=== PATIENT | female | born 1955 | race Caucasian/White ===

== ENCOUNTER 2022-07-03 11:54 | Inpatient (IN) ==
[~2022-07-03 11:54] MED LIST: ACETAMINOPHEN 500 MG TAB PO SCH; LACTATED RINGER'S 1,000 ML IV SCH; ceFAZolin 2000MG 2,000 MG/15 ML SYR IV SCH; dexAMETHasone 4 MG TAB PO SCH; traMADol HCL 50 MG TABLET PO SCH
[2022-07-03] MEDS ORDERED: bisacodyL 10 MG SUPP PR PRN (12:05)
[2022-07-03] MEDS ORDERED: HYDROmorphone INJ 0.5 MG/0.5 ML SYR IV PRN ×2 (12:05)
[2022-07-03] MEDS ORDERED: MAGNESIUM HYDROXIDE SUSP 30 ML UDC PO PRN (12:05)
[2022-07-03] MEDS ORDERED: NALOXONE HCL 0.4 MG/1 ML VIAL/CARP IV PRN (12:05)
--- NOTE | 2022-07-03 12:05 | History & Physical Report ---
Date of Service July 03, 2022 Assessment & Plan (1) Fracture, intertrochanteric, left femur: Plan: Acute left intertrochanteric femur fracture Diagnosed at [place], patient transferred to [facility] as is established with [facility] orthopedics and preferred to have intervention in her facility Discussed with ER provider at [facility], patient with left intertrochanteric fracture and lesser troches avulsion. Images sent via disc, forwarded to radiology for independent read and reviewed Orthopedics consulted, discussed prior to transfer. Dr. Hua consulted. N.p.o. at midnight RCRI 0 points pending creatinine reevaluation, no modifiable risk factors at this time Continue Tylenol with scaled hydromorphone for analgesia Patient scheduled for first morning orthopedic intervention, may have clears until midnight Anxiety Continue Lexapro 10 mg daily Osteoporosis Fosamax weekly, recommend daily calcium/vitamin D supplementation No other chronic medical problems, no chronic medications, no cardiac history, no history of diabetes or insulin use DVT prophylaxis: Pharmacal prophylaxis held pending surgical intervention within ~12 hours Diet: Clears, n.p.o. at midnight Disposition: Medical/surgical CODE STATUS: Full code (2) Anxiety: History of Present Illness Primary Care Provider: Fei Keenan MD Rosaura Patrick is a 67-year-old female who presented to [facility] after a fall over her purse striking her left hip and 2 on evaluation in the ER was found to have an intertrochanteric left hip fracture with left shoulder trochanter avulsion. Per signout report patient has no other comorbidities, no history of diabetes or cardiac disease, is active, and takes no regular medications other than Fosamax. Per report patient in normal sinus rhythm with stable vitals and appropriate for medical surgical level of care. Discussed with clinical coordinator, patient was excepted for direct admission to medicine with surgery on consult. Discussed with surgical PA, Dr. Hua aware and will be on consult. Patient is known to [facility] orthopedics. Seen at bedside on arrival to [facility]. She reports that she tripped over her purse and fell to the floor striking her hip with immediate pain in the proximal left hip. She did not strike her head or neck. No headache or neck pain. No syncope, presyncope, lightheadedness, dizziness that led to the fall. She reports she walks regularly with her and has no exertional dyspnea or exercise limitation at baseline. No history of heart disease. No history of diabetes. No history of insulin use. No history of kidney disease. Takes Lexapro 10 mg daily for anxiety and Fosamax weekly, otherwise no chronic medications. At time of assessment she feels comfortable in bed as long she does not move, has pain in her proximal medial hip. Sensation is intact in her feet bilaterally, denies numbness/tingling. Denies fever, chills, sweats, nausea, vomiting, diarrhea, and constipation. No tobacco/heavy alcohol use. Medical History: Reviewed Medications: Reviewed Surgical History: Reviewed Allergies: Reviewed Social History: No tobacco use, no heavy alcohol use Code Status: Full code Allergies Allergy/AdvReac Type Severity Reaction Status Date / Time Iodinated Contrast Media Allergy Mild HIVES Verified 01/23/20 18:00 Home Medications Medication Instructions Recorded Confirmed Type alendronate 70 mg tablet (Fosamax) 70 mg PO WK 01/23/20 01/23/20 History Past Med/Surg History Medical History (Updated 07/03/22 @ 17:28 by Jose Rafael Hand MD) Anxiety No pertinent past medical history Social History Smoking Status: Never smoker Preferred Language: [place] Feels Safe at Home: Yes Review of Systems Review of Systems: All systems reviewed & are unremarkable except as noted in HPI & below Physical Exam Physical Exam: General: A&Ox3. NAD. Cooperative. HEENT: Atraumatic, normocephalic. Vision and hearing grossly intact. Pupils equal and reactive to light Pulm: CTAB A&P. -wheezes, -rales, -rhonchi. Symmetrical chest rise. No increase in work of breathing. No respiratory distress. Cardiac: RRR, -mrg. Radial pulses intact and symmetrical. Abdominal: Nontender, nondistended, soft. BS present. Extremities: Resting comfortably in bed, left lower extremity slightly shortened. Tender to palpation at proximal medial thigh. PT pulse/DP pulses intact and symmetrical. Sensation of soft touch intact in feet bilaterally without asymmetry. Cap refill brisk in the hallux bilaterally. Able to wiggle toes bilaterally PG Care Time/CCT Total # of Minutes Spent Total Time Spent with Patient: Total time spent is greater than 50% in coordination of care (as documented) at patient's floor/unit and/or counseling patient: Coding Level of Care Code 17068 Initial Inpt Care Lvl 2 Diagnoses Fracture, intertrochanteric, left femur S72.142A Anxiety F41.9
[2022-07-03] MEDS: LACTATED RINGER'S 1,000 ML IV SCH (17:11)
[2022-07-03 17:59] LABS: INR 1.2 (0.9-1.1); Partial Thromboplastin Ratio 0.9; Partial Thromboplastin Time 23.9 Seconds (21.0-31.0); Prothrombin Time 12.2 Seconds (9.0-12.0)
--- NOTE | 2022-07-03 18:36 | History & Physical Report ---
Date of Service July 03, 2022 Assessment & Plan (1) Fracture, intertrochanteric, left femur: Plan: Left femur trochanteric nailing to be preformed tomorrow AM NPO after midnight Pain control with PO or IV meds until midnight IV Zofran for nausea Informed consent to precede with surgery obtained NWB on Left LE Admission and Anticipated Discharge Date Admission Date: July 03, 2022 History of Present Illness Chief Complaint: Left Hip Pain Primary Care Provider: Fei Keenan MD This 67 yo F was transferred from [facility] to our facility for a hip fracture that she sustained this AM after tripping over her purse and landing on her left side. Patient was unable bear weight on the left LE after the fall. She elected to come here for surgery because she is established with our providers. She denies CP, SOB, nausea, vomiting, fever, chills, sweats, lethargy or N/T in her left lower extremity. She does have history of osteoporosis and anxiety. Allergies Allergy/AdvReac Type Severity Reaction Status Date / Time Iodinated Contrast Media Allergy Mild HIVES Verified 01/23/20 18:00 Home Medications Medication Instructions Recorded Confirmed Type alendronate 70 mg tablet (Fosamax) 70 mg PO WK 01/23/20 01/23/20 History Past Med/Surg History Medical History Anxiety No pertinent past medical history Social History Smoking Status: Never smoker Do You Dip or Chew Tobacco: No; Hx Alcohol Use: Yes Alcohol type: wine Hx Substance Use: No Preferred Language: Romansh Communication Ability: Effective [facility] Coordinator Required: No Beliefs That Will Affect Care: None Current Living Situation: Spouse Other Information That Helps Us Care for You: No Feels Safe at Home: Yes Safety Concerns: Feels Safe At This Time Assistive Devices: Glasses Review of Systems All systems reviewed & are unremarkable except as noted in Subjective Physical Exam Physical Exam: Left LE: shortened and externally rotated. Unable to perform SLRT. Pain with log roll. Able to actively dorsi/plantar flex foot. Periph pulses 2+. Cap refill less that 2 seconds. TTP over proximal femur. NV intact. Constitutional: WD/WN, vitals as above Eyes: PERRL, conjunctivae normal, anicteric sclerae ENMT: external ear and nose normal, oropharynx normal Respiratory: Auscultation: lungs clear to auscultation bilaterally Cardiovascular: Rate/Rhythm: regular rate and regular rhythm Gastrointestinal (Abdomen): normal bowel sounds, soft, nontender, no hepatosplenomegaly Skin: no rashes, warm and dry Neurologic: patellar DTR's 2+ bilat, sensation intact Psychiatric: A+Ox3, euthymic affect Results & Data ([facility]) Vital Signs (Past 12 Hours) Vital Signs Temp Pulse Resp BP Pulse Ox Pulse Ox O2 Del Method 07/03/22 16:45 100 07/03/22 16:45 36.9 C 70 18 123/72 100 Room Air O2 Del Method 07/03/22 16:45 Room Air 07/03/22 16:45 Diagnostic Findings Laboratory Results PT 12.2 Seconds (9.0-12.0) H 07/03/22 17:34 INR 1.2 (0.9-1.1) H 07/03/22 17:34 APTT 23.9 Seconds (21.0-31.0) 07/03/22 17:34 PTT Ratio 0.9 07/03/22 17:34 Supervising Physician Co-Signing Physician Notes I personally examined the patient with WILLY Trivedi, reviewed the plan for surgery, and answered all questions about treatment.
[2022-07-03 19:00] LABS: Hematocrit (blood only) 39.1 % (34.1-44.9); Hemoglobin 13.4 g/dl (12.0-16.0); Mean Corpuscular Hemoglobin 32.1 pg (25.0-34.0); Mean Corpuscular Hgb Conc 34.3 g/dL (32.0-36.0); Mean Corpuscular Volume 93.5 fL (80.0-100.0); Mean Platelet Volume 11.6 fL (9.4-12.3); Platelet Count 207 K/uL (130-400); RDW Coefficient of Variation 12.3 % (11.5-14.5); RDW Standard Deviation 42.7 fL (36.4-46.3); Red Blood Count 4.18 M/uL (3.93-5.22); White Blood Count 9.17 K/ul (4.8-10.8)
[2022-07-03 19:10] LABS: BUN Creatinine Ratio 22.7 (10-20); Calcium 8.8 mg/dl (8.5-10.1); Creatinine Clr Calc Pharmacy 65.5 ml/min; Est GFR (African American) 95.6 ml/min; Est GFR (Non-African American) 82.5 ml/min; Potassium 3.6 mmol/L (3.5-5.1)
[2022-07-03] MEDS: DOCUSATE SODIUM/SENNA 50/8.6MG TAB PO SCH (20:29)
[2022-07-03] MEDS ORDERED: ESCITALOPRAM OXALATE 10 MG TAB PO ONE (21:47)
[2022-07-04] MEDS: LACTATED RINGER'S 1,000 ML IV SCH (01:36)
[2022-07-04] MEDS ORDERED: TRANEXAMIC ACID / 0.7% NACL 1,000 MG/100 ML BAG IV SCH ×2 (06:00→06:30)
[2022-07-04 06:15] LABS: Basophils # (auto) 0.02 K/uL (0-0.2); Basophils % (auto) 0.4 %; Eosinophils # (auto) 0.03 K/uL (0-0.50); Eosinophils % (auto) 0.6 %; Hematocrit (blood only) 34.6 % (34.1-44.9); Hemoglobin 11.5 g/dl (12.0-16.0); Immature Granulocytes # (auto) 0.02 K/uL (0.00-0.02); Immature Granulocytes % (auto) 0.4 %; Lymphocytes # (auto) 0.83 K/uL (1.2-3.4); Lymphocytes % (auto) 15.7 %; Mean Corpuscular Hemoglobin 31.6 pg (25.0-34.0); Mean Corpuscular Hgb Conc 33.2 g/dL (32.0-36.0); Mean Corpuscular Volume 95.1 fL (80.0-100.0); Monocytes # (auto) 0.45 K/uL (0.24-0.82); Monocytes % (auto) 8.5 %; Neutrophils # (auto) 3.92 K/uL (1.4-6.5); Neutrophils % (auto) 74.4 %; Platelet Count 171 K/uL (130-400); RDW Coefficient of Variation 12.6 % (11.5-14.5); RDW Standard Deviation 43.3 fL (36.4-46.3); Red Blood Count 3.64 M/uL (3.93-5.22); White Blood Count 5.27 K/ul (4.8-10.8)
[2022-07-04 06:39] LABS: Albumin Globulin Ratio 1.5 (0.9-2); Albumin Level 3.3 gm/dl (3.4-5.0); BUN Creatinine Ratio 28.8 (10-20); Bilirubin,Total 2.4 mg/dl (0.2-1.0); Calcium 7.9 mg/dl (8.5-10.1); Creatinine Clr Calc Pharmacy 83.3 ml/min; Est GFR (African American) 109.9 ml/min; Est GFR (Non-African American) 94.8 ml/min; Globulin 2.2 gm/dl (2.5-4.0); Potassium 3.5 mmol/L (3.5-5.1); Total Protein 5.5 gm/dl (6.0-8.3)
[2022-07-04] MEDS ORDERED: fentaNYL citrate 100 MCG/2 ML VIAL ONE ×2 (07:07→07:12)
[2022-07-04] MEDS ORDERED: MIDAZOLAM HCL 1 MG/ML 2ML VIAL ONE (07:07)
[2022-07-04] MEDS ORDERED: ACETAMINOPHEN 1000 MG/100 ML IV IV ONE (07:21)
[2022-07-04] MEDS ORDERED: SCOPOLAMINE 1 MG TDSY TD ONE (07:22)
[2022-07-04] MEDS ORDERED: FAMOTIDINE/PF 20 MG/2 ML VIAL IV ONE (07:22)
[2022-07-04] MEDS ORDERED: HYDROmorphone INJ 2 MG/ML SYR/VIAL IV PRN (07:29)
[2022-07-04] MEDS ORDERED: ATROPINE SULFATE 0.1 MG/ML 10ML SYR IV PRN (07:29)
[2022-07-04] MEDS ORDERED: fentaNYL citrate 100 MCG/2 ML VIAL IV PRN (07:29)
[2022-07-04] MEDS ORDERED: ePHEDrine sulfate 50 MG/ML AMP IV PRN (07:29)
--- NOTE | 2022-07-04 07:29 | Anesthesiology Consultation ---
Date of Service July 04, 2022 Assessment & Plan Chart Review Chart Review: Acceptable Risk for Surgery and Patient NOT seen in Pre Admission Testing ASA ASA2E Proposed Anesthesia Anesthesia Type: General Risk / Benefits Reviewed With: PT / POA / Parent / Guardian, Accepts Plan and Informed Consent Obtained History Surgery Operation Date: 07/04/22 07:30 Proposed Procedures p Intramedullary Candido Femur(Left) - Jose Hua MD Height/Weight Height: 5 ft 5 in Weight: 63 kg Allergies Allergy/AdvReac Type Severity Reaction Status Date / Time Iodinated Contrast Media Allergy Mild HIVES Verified 01/23/20 18:00 Medications Home Medications Medication Instructions Recorded Confirmed Last Taken alendronate 70 mg tablet (Fosamax) 70 mg PO WK 01/23/20 01/23/20 Unknown Active Medications Generic Name Dose Route Start Last Admin Trade Name Freq PRN Reason Stop Dose Admin Hydromorphone HCl 0.25 mg 07/03/22 12:05 07/04/22 01:36 Hydromorphone Inj 0.5 Mg/0.5 Ml Syr IV 07/17/22 12:04 0.25 mg Q3H PRN Administration Pain (1,2,3,4,5) & Pre PT Hydromorphone HCl 0.5 mg 07/03/22 12:05 07/04/22 05:55 Hydromorphone Inj 0.5 Mg/0.5 Ml Syr IV 07/17/22 12:04 0.5 mg Q3H PRN Administration Pain (6,7,8,9,10) Lactated Ringer's 1,000 mls @ 100 mls/hr 07/03/22 12:15 07/04/22 01:36 Lr IV 08/02/22 12:14 100 mls/hr .Q10H DUNIA Administration Senna/Docusate Sodium 2 tab 07/03/22 21:00 07/03/22 20:29 Docusate Sodium/Senna 50/8.6mg Tab PO 08/02/22 20:59 2 tab HS DUNIA Administration NPO Date Last Intake of Fluids: 07/03/22 Time Last Intake of Fluids: 17:00 Past Medical History Medical History Anxiety No pertinent past medical history Exercise / Class Metabolic Activity II 4-5 Yardwork/Stairs/Walk up hill Past Anesthesia History No Hx of Anesthesia Complications and No Family Hx of Anesthesia Complications History of PONV No Hx of PONV and Hx of Motion Sickness Social History Smoking Status: Never smoker Do You Dip or Chew Tobacco: No Hx Alcohol Use: Yes Alcohol type: wine alcohol intake frequency: holidays/special occasions only Hx Substance Use: No Review of Systems Constitutional: as per Subjective / HPI Ear, Nose, Mouth, Throat: as per Subjective / HPI Cardiovascular: as per Subjective / HPI Gastrointestinal: as per Subjective / HPI Genitourinary (Female): as per Subjective / HPI Musculoskeletal: as per Subjective / HPI Integumentary: as per Subjective / HPI Neurologic: as per Subjective / HPI Psychiatric: as per Subjective / HPI Endocrine: as per Subjective / HPI Hematologic / Lymphatic: as per Subjective / HPI Allergy / Immunological: as per Subjective / HPI Physical Exam Vital Signs Last Vital Signs Temp 36.7 C 07/03/22 22:07 Pulse 59 L 07/03/22 22:07 Resp 14 07/03/22 22:07 BP 106/63 07/03/22 22:07 Pulse Ox 99 07/03/22 22:07 O2 Del Method 07/03/22 22:07 ENMT Mouth: no TMJ abnormality Thyromental Distance: > or= 3.5 Finger Breadths Mallampati Class: II Neck normal visual inspection Respiratory normal respiratory effort Cardiovascular Rate/Rhythm: regular rhythm and + bradycardic Musculoskeletal Spine: normal cervical ROM Extremities: extremities normal to inspection Neurologic moves all extremities Psychiatric Orientation: alert and oriented x 3 Testing Laboratory Results 07/04/22 05:46 07/04/22 05:46 PT 12.2 Seconds (9.0-12.0) H 07/03/22 17:34 INR 1.2 (0.9-1.1) H 07/03/22 17:34 APTT 23.9 Seconds (21.0-31.0) 07/03/22 17:34 Blood Type A Positive 07/03/22 17:34 Antibody Screen NEGATIVE 07/03/22 17:34
--- NOTE | 2022-07-04 07:29 | History & Physical Bridge Note ---
Date of Service July 04, 2022 History & Physical Bridge Note I have examined the patient, reviewed the History & Physical and in the interval since the performance of the History & Physical I have noted the following changes of clinical significance: no changes noted
[2022-07-04] MEDS ORDERED: TRANEXAMIC ACID / 0.7% NACL 1000MG/100ML BAG IV ONE (07:42)
[2022-07-04] MEDS ORDERED: LIDOCAINE 2% MPF LOCAL 5 ML VIAL INFIL ONE (07:53)
[2022-07-04] MEDS ORDERED: HYDROmorphone INJ 2 MG/ML SYR/VIAL ONE (07:54)
[2022-07-04] MEDS ORDERED: DEXAMETHASONE SOD INJ 4 MG/ML VIAL ONE (07:54)
[2022-07-04] MEDS ORDERED: PROPOFOL IV EMULSION 10 MG/ML 20 ML VIAL IV ONE (07:54)
[2022-07-04] MEDS ORDERED: ONDANSETRON INJ 2 MG/ML 2 ML VIAL ONE (07:54)
[2022-07-04] MEDS ORDERED: METOCLOPRAMIDE HCL INJ 5 MG/ML 2 ML VIAL ONE (07:54)
[2022-07-04] MEDS ORDERED: ROCURONIUM BROMIDE 10 MG/ML 5 ML VIAL IV ONE (07:54)
[2022-07-04] MEDS ORDERED: ePHEDrine sulfate 50 MG/ML SYR ONE (08:13)
[2022-07-04] MEDS ORDERED: ePHEDrine sulfate 50 MG/ML AMP ONE (08:13)
[2022-07-04] MEDS ORDERED: NEOSTIGMINE METHYLSULFATE 1 MG/ML 10ML VIAL ONE (08:18)
[2022-07-04] MEDS ORDERED: GLYCOPYRROLATE 0.2 MG/ML VIAL ONE (08:18)
[2022-07-04] MEDS ORDERED: PHENYLEPHRINE 100MCG/ML 5ML SYR ONE (08:19)
[2022-07-04] MEDS ORDERED: TRANEXAMIC ACID 100 MG/ML 10 ML VIAL IV ONE (08:27)
[2022-07-04] MEDS ORDERED: KETOROLAC 30 MG/ML VIAL ONE (09:08)
--- NOTE | 2022-07-04 09:15 | Operative Report ---
Post Operative Report Pre & Post Diagnosis Operation Date: 07/04/22 07:30 Pre-Op Diagnosis: LEFT INTERTROCHANTERIC FRACTURE Post-Op Diagnosis: LEFT INTERTROCHANTERIC FRACTURE I identified the patient and participated in the time-out.: Yes Procedure Operation Date: 07/04/22 07:30 Actual Procedures p Left Hip Trochanteric Nailing(Left) - Jose Hua MD Surgeon page Hua Parquet Floor Layer'S Helper MISSAEL Chew. Estimated Blood Loss 10 Findings Consistent with Post-Op Diagnosis Specimens None Anesthesia Type General Complications none Disposition Accompanied Patient To Recovery: No Disposition: Recovery Room Indications Rosaura is 67 years old and has a left intertrochanteric hip fracture. Description of Procedure I was present throughout the length of the operation provide necessary assistance with positioning retraction surgical exposure and general surgical assistance. For details of the operation please refer to Dr. Hua's dictation. I attest to the content of the Intraoperative Record and any orders documented therein. Any exceptions are noted below.
--- NOTE | 2022-07-04 09:41 | Post Operative Brief Note ---
Immediate Post Op Note v1 Date of Surgery July 04, 2022 Pre & Post Diagnosis Operation Date: 07/04/22 07:30 Pre-Op Diagnosis: LEFT INTERTROCHANTERIC FRACTURE Post-Op Diagnosis: LEFT INTERTROCHANTERIC FRACTURE I identified the patient and participated in the time-out.: Yes Procedure Operation Date: 07/04/22 07:30 Actual Procedures p Left Hip Trochanteric Nailing(Left) - Jose Hua MD Surgeon Jose Hua MD Ticket Sales Agent MISSAEL Chew. Estimated Blood Loss 10 Findings Consistent with Post-Op Diagnosis Fluids 1200cc Drains Wei Catheter (intact prior to procedure) Anesthesia Type General Complications none Disposition Accompanied Patient To Recovery: Yes Disposition: Recovery Room
--- NOTE | 2022-07-04 09:42 | Operative Report ---
Post Operative Report Pre & Post Diagnosis Operation Date: 07/04/22 07:30 Pre-Op Diagnosis: LEFT INTERTROCHANTERIC FRACTURE Post-Op Diagnosis: LEFT INTERTROCHANTERIC FRACTURE I identified the patient and participated in the time-out.: Yes Procedure Operation Date: 07/04/22 07:30 Actual Procedures p Left Hip Trochanteric Nailing(Left) - Jose Hua MD Surgeon Jose Hua MD Size Roller Operator MISSAEL Chew. Estimated Blood Loss 10 Findings Consistent with Post-Op Diagnosis Specimens na Anesthesia Type General Complications na Disposition Accompanied Patient To Recovery: Yes Disposition: Recovery Room Description of Procedure PRIMARY SURGEON: Jose Hua MD OPEN WINDER SURGEON: Jose Rafael Mayorga MD; MISSAEL Trivedi PA-C INDICATION FOR SURGERY: Patient is a 67 year female, transferred from [facility] at the request of her daughter. She injured her left hip after tripping over her purse. She had immediate pain and was taken to the ER. She was diagnosed with an left intertrochanteric hip fracture. She opted to be transferred to [facility] for evaluation and treatment. PREOPERATIVE DIAGNOSES: left intertrochanteric hip fracture POSTOPERATIVE DIAGNOSES: left intertrochanteric hip fracture OPERATION PERFORMED: left hip intramedullary nail with cephalomedullary device LABORATORY SPECIMEN(s): None. FINDINGS: minimally displaced left hip fracture, intertrochanteric variant IMPLANTS: Synthes TFN, 12mm x 170mm with 95mm blade and 36mm locking screw ANESTHESIA: General. Tourniquet: none Preop antibiotics: 2 g of Ancef Complications: None Estimated blood loss: 25 cc DESCRIPTION OF OPERATION: The patient was identified in the preoperative holding area. The patients consent was verified identifying the patient and the procedure. The surgeons initials were placed on the operative site. The patient was then taken from the preoperative holding area to the Operating Room. The patient was transferred from the hospital bed to the Operating Room table and placed under general anesthesia. At this point, the patient was prepped, and draped in a standard sterile fashion in a 90/90 position on a fracture table. A surgical time-out was performed identifying the patient and the procedure. All members of the Surgical Team agreed. The patient was given 2g of Ancef preoperatively. The procedure started with entry point identification using fluoroscopy. A 2cm incision was made proximal to the greater trochanter and soft tissue was dissected down to bone. The proper starting point was located with the guide pin and the pin was powered into bone to the level of the lesser trochanter. The pin position was checked on AP and lateral X-rays. Next, a 16mm opening reamer was used in standard fashion and ball-tipped guide wire was placed down the femur. No reamer was utilized for the canal as we opted to use a short nail. A 12mm nail was used and placed over the guide in standard fashion. It was seated to the appropriate depth and the guide wire was removed. Next, the helical blade portion of the case started. Skin was marked with the guide and a small incision was made on the lateral thigh. The guide sleeve was placed on bone and the proximal femur and femoral neck were reamed in standard fashion. After measuring the length, the appropriate sized helical blade was inserted in standard fashion, in dynamic mode, and locked. Lastly, the distal interlocking screw was placed through the guide in standard fashion. Throughout each step of the case, C-arm was utilized in AP and lateral planes for confirmation of reduction and proper hardware placement. Nurses performed a count and the count was correct. All the incisions were then thoroughly irrigated with sterile saline. Incisions were closed in layered fashion and sterile dressing were placed on patient. Patient was awoken and brought to PACU in routine manner. Postoperatively, the patient will be WBAT and admitted for pain control and physical therapy management. I attest to the content of the Intraoperative Record and any orders documented therein. Any exceptions are noted below.
--- NOTE | 2022-07-04 09:42 | Operative Report ---
Post Operative Report Pre & Post Diagnosis Operation Date: 07/04/22 07:30 Pre-Op Diagnosis: LEFT INTERTROCHANTERIC FRACTURE Post-Op Diagnosis: LEFT INTERTROCHANTERIC FRACTURE I identified the patient and participated in the time-out.: Yes Procedure Operation Date: 07/04/22 07:30 Actual Procedures p Left Hip Trochanteric Nailing(Left) - Jose Hua MD Surgeon Jose Hua MD Powder Operator MISSAEL Chew. Estimated Blood Loss 10 Findings Consistent with Post-Op Diagnosis Specimens none Description of Procedure I was present during the entire procedure assisting with positioning, prepping, draping, wound retraction, wound closure and dressing application. Please see Dr. Hua procedure note for specifics of the case. I attest to the content of the Intraoperative Record and any orders documented therein. Any exceptions are noted below.
--- NOTE | 2022-07-04 09:42 | Operative Report ---
Post Operative Report Pre & Post Diagnosis Operation Date: 07/04/22 07:30 Pre-Op Diagnosis: LEFT INTERTROCHANTERIC FRACTURE Post-Op Diagnosis: LEFT INTERTROCHANTERIC FRACTURE I identified the patient and participated in the time-out.: Yes Procedure Operation Date: 07/04/22 07:30 Actual Procedures p Left Hip Trochanteric Nailing(Left) - Jose Hua MD Surgeon Jose Hua MD Meter Repair Shop Supervisor MISSAEL Chew. Estimated Blood Loss 10 Findings Consistent with Post-Op Diagnosis Specimens na I attest to the content of the Intraoperative Record and any orders documented therein. Any exceptions are noted below.
[2022-07-04] MEDS ORDERED: oxyCODONE HCL IR 5 MG TAB (IMMEDIATE RELEASE) PO PRN (09:43)
[2022-07-04] MEDS ORDERED: diphenhydrAMINE 50 MG/ML VIAL IV PRN (09:43)
[2022-07-04] MEDS ORDERED: HYDROmorphone INJ 0.5 MG/0.5 ML SYR IV PRN (09:43)
--- NOTE | 2022-07-04 09:46 | Fluoroscopy Report ---
FL hip LT 2-3V CLINICAL HISTORY: LEFT TROCHNAIL COMPARISON STUDY: Pelvis radiograph April 10, 2019. FLUOROSCOPY TIME: 1 minute and 49 seconds. FLUOROSCOPIC IMAGES: 5 FINDINGS: Fluoroscopy was provided during internal fixation of the intertrochanteric fracture with tr ochanteric nail. Hardware is intact. There are no unexpected radiopaque foreign bodies. Lesser trocha nter is displaced. Expected postoperative findings are noted. IMPRESSION: Fluoroscopy provided during internal fixation of the intertrochanteric fracture of the l eft femur. ACT 112: Negative or not required by law. Electronically signed by: Jovanni Cooper M.D. 07/04/2022 9:45 AM
--- NOTE | 2022-07-04 10:30 | Anesthesiology Progress Note ---
Date of Service July 04, 2022 Anesthesia Post Procedure Vital Signs Vital Signs: Temp Pulse Pulse Resp BP Pulse Ox Pulse Ox 07/04/22 10:15 90 12 131/69 97 07/04/22 10:05 89 12 152/86 H 100 07/04/22 09:55 93 H 15 141/79 H 100 07/04/22 09:46 36.5 C 104 H 15 156/85 H 100 07/03/22 22:07 99 07/03/22 22:07 36.7 C 59 L 14 106/63 99 07/03/22 16:45 100 07/03/22 16:45 36.9 C 70 18 123/72 100 O2 Del Method O2 Del Method O2 Flow Rate 07/04/22 10:15 Oxymask 2 07/04/22 10:05 Oxymask 4 07/04/22 09:55 Oxymask 6 07/04/22 09:46 Oxymask 6 07/03/22 22:07 Room Air 07/03/22 22:07 Room Air 07/03/22 16:45 Room Air 07/03/22 16:45 Room Air Transfer of Care Handoff Completed per policy Notes Mental Status: alert / awake / arousable and participated in evaluation Patient Amnestic to Procedure: Yes Nausea / Vomiting: adequately controlled Pain: adequately controlled Airway Patency, RR, SpO2: stable & adequate BP & HR: stable & adequate Hydration State: stable & adequate Anesthetic Complications: no major complications apparent and Pt Satisfied with anesthetic care
[2022-07-04] MEDS ORDERED: ceFAZolin 330 MG/ML 1 GM VIAL ONE (10:34)
--- NOTE | 2022-07-04 11:27 | XRay Report ---
XR hip LT min 2V CLINICAL HISTORY: Post-Operative implant position COMPARISON: Intraoperative fluoroscopic images performed earlier today. FINDINGS: Postoperative findings consistent with internal fixation of the intertrochanteric fracture of the left femur with trochanteric nail are noted. Lesser trochanter is displaced. Otherwise, fract ure is in near anatomic alignment. Hardware is intact. There are no unexpected radiopaque foreign bod ies. IMPRESSION: Postoperative findings following internal fixation of the intertrochanteric fracture of t he left femur with trochanteric nail. ACT 112: Negative or not required by law. Electronically signed by: Jovanni Cooper M.D. 07/04/2022 11:25 AM
[2022-07-04] MEDS: ONDANSETRON INJ 2 MG/ML 2 ML VIAL IV PRN ×2 (11:30→17:32)
[2022-07-04] MEDS ORDERED: ceFAZolin 2000MG 2,000 MG/15 ML SYR IV ONE (12:00)
--- NOTE | 2022-07-04 14:42 | Hospitalist Progress Note ---
Date of Service July 04, 2022 Assessment & Plan (1) Fracture, intertrochanteric, left femur: Plan: Acute left intertrochanteric femur fracture Diagnosed at [place], patient transferred to [facility] as is established with [facility] orthopedics and preferred to have intervention in her facility Discussed with ER provider at [place], patient with left intertrochanteric fracture and lesser troches avulsion. Images sent via disc, forwarded to radiology for independent read and reviewed Orthopedics consulted, discussed prior to transfer. Dr. Hua consulted. -She is now s/p nailing -Pain is under good control PT/OT on board Osteoporosis Fosamax weekly, recommend daily calcium/vitamin D supplementation No other chronic medical problems, no chronic medications, no cardiac history, no history of diabetes or insulin use (2) Anxiety: Plan: Continue Lexapro 10 mg daily Plan DVT prophylaxis: Pharmacal prophylaxis held pending surgical intervention within ~12 hours Diet: regular Disposition: Medical/surgical CODE STATUS: Full code Admission and Anticipated Discharge Date Admission Date: July 03, 2022 Subjective patient seen and examined post surgery, family by the bedside Review of Systems Review of Systems: All systems reviewed are negative, apart from the ones contained in the history. Physical Exam Physical Exam: The patient is awake, alert and oriented 3, well developed and well nourished, normocephalic and atraumatic, lying in bed and in no acute distress. HEENT--PERRL, EOMI, mucous membranes and oropharynx mildly dry Neck--supple. No JVD. No bruits. Thyroid normal, trachea midline, no adenopathy. Heart--normal S1 and S2. No murmurs, rubs or gallops. Lungs--clear bilaterally, no respiratory distress, no accessory muscle use. Abdomen--normal bowel sounds and soft. Mild epigastric and left sided abdominal pain Extremities--no cyanosis or clubbing. No edema. Dermatologic--normal skin turgor, normal color, no abnormal lymph nodes, no rash. Neurologic--cranial nerves II through XII grossly intact. Rheumatologic--normal range of motion. Psychiatric--normal affect. Results & Data Results & Data ([facility]) Vital Signs (Past 12 Hours) Vital Signs Temp Pulse Pulse Pulse Resp BP Pulse Ox 07/04/22 13:59 88 16 127/75 95 07/04/22 13:58 97.3 F L 63 14 126/76 99 07/04/22 13:57 07/04/22 12:45 97.5 F L 96 H 18 145/79 H 100 07/04/22 11:45 97.5 F L 95 H 18 122/74 100 07/04/22 11:15 97.5 F L 96 H 18 125/75 100 07/04/22 10:45 07/04/22 10:45 97.5 F L 96 H 18 146/77 H 100 07/04/22 10:25 90 14 132/72 98 07/04/22 10:15 90 12 131/69 97 07/04/22 10:05 89 12 152/86 H 100 07/04/22 09:55 93 H 15 141/79 H 100 07/04/22 09:46 97.7 F 104 H 15 156/85 H 100 Pulse Ox O2 Del Method O2 Del Method O2 Flow Rate 07/04/22 13:59 Room Air 07/04/22 13:58 Room Air 07/04/22 13:57 99 Room Air 07/04/22 12:45 Nasal Cannula 2 07/04/22 11:45 Nasal Cannula 2 07/04/22 11:15 Nasal Cannula 2 07/04/22 10:45 Nasal Cannula 2 07/04/22 10:45 Nasal Cannula 2 07/04/22 10:25 Nasal Cannula 2 07/04/22 10:15 Oxymask 2 07/04/22 10:05 Oxymask 4 07/04/22 09:55 Oxymask 6 07/04/22 09:46 Oxymask 6 PG Care Time/CCT Total # of Minutes Spent Total Time Spent with Patient: Total time spent is greater than 50% in coordination of care (as documented) at patient's floor/unit and/or counseling patient: Coding Level of Care Code 88331 Subseq Hosp Care Lvl 2 Diagnoses Fracture, intertrochanteric, left femur S72.142A Anxiety F41.9 Time Spent (min) 35
[2022-07-04] MEDS ORDERED: PROMETHAZINE HCL 12.5 MG in SODIUM CHLORIDE 0.9% 50 ML IV STA (18:00)
--- NOTE | 2022-07-04 21:40 | Electrocardiogram Report ---
Test Reason : Blood Pressure : / mmHG Vent. Rate : 062 BPM Atrial Rate : 061 BPM P-R Int : 000 ms QRS Dur : 070 ms QT Int : 418 ms P-R-T Axes : 000 137 049 degrees QTc Int : 424 ms Suspect arm lead reversal, interpretation assumes no reversal Probable Sinus rhythm Lateral infarct , age undetermined Nonspecific T wave abnormality Abnormal ECG No previous ECGs available Confirmed by Kenneth Medrano ([id number]) on 07/04/2022 9:40:27 PM Referred By: Jose Rafael Hand Confirmed By:Kenneth Medrano
[2022-07-04] MEDS: ASPIRIN 81 MG ECTAB PO SCH (22:07)
[2022-07-04] MEDS: ESCITALOPRAM OXALATE 10 MG TAB PO SCH (22:07)
[2022-07-04] MEDS: DOCUSATE SODIUM/SENNA 50/8.6MG TAB PO SCH (22:07)
[2022-07-05] MEDS: ACETAMINOPHEN 325 MG TAB PO PRN ×2 (03:46→20:13)
[2022-07-05 07:44] LABS: Basophils # (auto) 0.01 K/uL (0-0.2); Basophils % (auto) 0.1 %; Eosinophils # (auto) 0.01 K/uL (0-0.50); Eosinophils % (auto) 0.1 %; Hematocrit (blood only) 28.5 % (34.1-44.9); Hemoglobin 9.6 g/dl (12.0-16.0); Immature Granulocytes # (auto) 0.03 K/uL (0.00-0.02); Immature Granulocytes % (auto) 0.4 %; Lymphocytes # (auto) 0.92 K/uL (1.2-3.4); Lymphocytes % (auto) 12.3 %; Mean Corpuscular Hemoglobin 31.6 pg (25.0-34.0); Mean Corpuscular Hgb Conc 33.7 g/dL (32.0-36.0); Mean Corpuscular Volume 93.8 fL (80.0-100.0); Mean Platelet Volume 11.3 fL (9.4-12.3); Monocytes # (auto) 0.52 K/uL (0.24-0.82); Monocytes % (auto) 6.9 %; Neutrophils # (auto) 6.02 K/uL (1.4-6.5); Neutrophils % (auto) 80.2 %; Platelet Count 151 K/uL (130-400); RDW Coefficient of Variation 12.8 % (11.5-14.5); RDW Standard Deviation 44.3 fL (36.4-46.3); Red Blood Count 3.04 M/uL (3.93-5.22); White Blood Count 7.51 K/ul (4.8-10.8)
[2022-07-05 08:25] LABS: BUN Creatinine Ratio 20.3 (10-20); Calcium 7.9 mg/dl (8.5-10.1); Creatinine Clr Calc Pharmacy 76.8 ml/min; Est GFR (Non-African American) 92.3 ml/min; Potassium 3.5 mmol/L (3.5-5.1)
[2022-07-05] MEDS: ASPIRIN 81 MG ECTAB PO SCH ×2 (08:26→20:17)
--- NOTE | 2022-07-05 09:41 | Orthopedic Progress Note ---
Date of Service July 05, 2022 Assessment & Plan (1) Fracture, intertrochanteric, left femur: Plan: POD1 s/p left hip trochanteric nailing with Dr Hua on 07/04/22 WBAT with walker PT/OT Diet - regular Frequently ice and elevate DVT prophylaxis: ASA 81mg BID x 6 weeks with food, TEDS x 3 weeks, foot pumps while in hospital Pain control: Tylenol 1000mg q 8hrs, oxycodone 5-10mg q4-6 hrs for moderate pain Dressing: Dressing changed today to xerform, rolled 4x4s and tegaderm Orthopedically stable for dc home today pending PT clearance Follow up with Dr Hua in 10-14 days @ [facility] Admission and Anticipated Discharge Date Admission Date: July 03, 2022 Subjective Pt was seen and examined bedside. POD #1 s/p left hip trochanteric nailing. No major events over night. Vitals are stable. Labs unremarkable. X-rays show normal post operative changed. Pt reports they are doing well and pain is controlled. They are tolerating PO intake and has catheter placed. Needs to work with PT/OT. Pt denies F/C, N/V/D, SOB, CP, dizziness. Physical Exam Physical Exam: General: Pt laying in hospital bed AA&O, in NAD, calm and cooperative during exam Lower Extremity: Dressing in tact and not saturated. Dressing taken down to reveal Incisions clean, dry and with minimal drainage and no surrounding erythema, warmth or purulent drainage. Pt has full ROM of ankle and all 5 digits. Pt has 5/5 strength with resisted DF/PF. SLR in tact. Calf supple and non tender. NVI with sensation to light touch distally and good distal pulses present. Lower extremity noted to have good color and temperature with no signs of vascular or lymphatic insufficiency. Results & Data ([facility]) Vital Signs (Past 12 Hours) Vital Signs Temp Pulse Resp BP Pulse Ox O2 Del Method 07/05/22 07:18 36.8 C 72 18 93/55 L 96 Room Air 07/05/22 03:40 36.9 C 84 14 111/65 97 Room Air 07/04/22 22:12 36.4 C L 69 14 114/72 95 Room Air Laboratory Results 07/05/22 07/05/22 07/05/22 Range/Units 07:03 07:03 07:03 WBC 7.51 (4.8-10.8) K/ul RBC 3.04 L (3.93-5.22) M/uL Hgb 9.6 L (12.0-16.0) g/dl Hct 28.5 L (34.1-44.9) % MCV 93.8 (80.0-100.0) fL MCH 31.6 (25.0-34.0) pg MCHC 33.7 (32.0-36.0) g/dL RDW Std Deviation 44.3 (36.4-46.3) fL RDW Coeff of [place] 12.8 (11.5-14.5) % Plt Count 151 (130-400) K/uL MPV 11.3 (9.4-12.3) fL Immature Gran % (Auto) 0.4 % Neut % (Auto) 80.2 % Lymph % (Auto) 12.3 % [place] % (Auto) 6.9 % Eos % (Auto) 0.1 % Baso % (Auto) 0.1 % Neut # (Auto) 6.02 (1.4-6.5) K/uL Lymph # (Auto) 0.92 L (1.2-3.4) K/uL [place] # (Auto) 0.52 (0.24-0.82) K/uL Eos # (Auto) 0.01 (0-0.50) K/uL Baso # (Auto) 0.01 (0-0.2) K/uL Immature Gran # (Auto) 0.03 H (0.00-0.02) K/uL Sodium 143 (136-145) mmol/L Potassium 3.5 (3.5-5.1) mmol/L Chloride 108 H (98-107) mmol/L Carbon Dioxide 31 (21-32) mmol/L Anion Gap 4 (3-11) BUN 13 (6-23) mg/dl Creatinine 0.64 (0.6-1.2) mg/dl Est Cr Clr Drug Dosing 76.8 ml/min Est GFR ( Amer) 107.0 ml/min Est GFR (Non-Af Amer) 92.3 ml/min BUN/Creatinine Ratio 20.3 H (10-20) Glucose 101 H (70-99(Fasting)) mg/dl Calcium 7.9 L (8.5-10.1) mg/dl 25-OH Vitamin D Total 22.0 L (30-100) ng/ml Diagnostic Findings XR hip LT min 2V 07/04/22 CLINICAL HISTORY: Post-Operative implant position COMPARISON: Intraoperative fluoroscopic images performed earlier today. FINDINGS: Postoperative findings consistent with internal fixation of the intertrochanteric fracture of the left femur with trochanteric nail are noted. Lesser trochanter is displaced. Otherwise, fracture is in near anatomic alignment. Hardware is intact. There are no unexpected radiopaque foreign bod ies. IMPRESSION: Postoperative findings following internal fixation of the intertrochanteric fracture of the left femur with trochanteric nail.
--- NOTE | 2022-07-05 16:03 | Hospitalist Progress Note ---
Date of Service July 05, 2022 Assessment & Plan (1) Fracture, intertrochanteric, left femur: Plan: Acute left intertrochanteric femur fracture -Day 1 post intramedllary nailing Participating in PT -Pain is under good control d/c home with PT Osteoporosis Fosamax weekly, recommend daily calcium/vitamin D supplementation No other chronic medical problems, no chronic medications, no cardiac history, no history of diabetes or insulin use (2) Anxiety: Plan: Continue Lexapro 10 mg daily Plan d/c was voided because patient felt light headed when working with PT DVT prophylaxis: Pharmacal prophylaxis held pending surgical intervention within ~12 hours Diet: regular Disposition: Medical/surgical CODE STATUS: Full code Admission and Anticipated Discharge Date Admission Date: July 03, 2022 Subjective patient seen and examined, she is stable post op Review of Systems Review of Systems: All systems reviewed are negative, apart from the ones contained in the history. Physical Exam Physical Exam: The patient is awake, alert and oriented 3, well developed and well nourished, normocephalic and atraumatic, lying in bed and in no acute distress. HEENT--PERRL, EOMI, mucous membranes and oropharynx mildly dry Neck--supple. No JVD. No bruits. Thyroid normal, trachea midline, no adenopathy. Heart--normal S1 and S2. No murmurs, rubs or gallops. Lungs--clear bilaterally, no respiratory distress, no accessory muscle use. Abdomen--normal bowel sounds and soft. Mild epigastric and left sided abdominal pain Extremities--no cyanosis or clubbing. No edema. Dermatologic--normal skin turgor, normal color, no abnormal lymph nodes, no rash. Neurologic--cranial nerves II through XII grossly intact. Rheumatologic--normal range of motion. Psychiatric--normal affect. Results & Data Results & Data ([facility]) Vital Signs (Past 12 Hours) Vital Signs Temp Pulse Resp BP Pulse Ox Pulse Ox O2 Del Method 07/05/22 15:16 98.2 F 62 18 110/64 93 Room Air 07/05/22 11:45 97 07/05/22 07:18 98.2 F 72 18 93/55 L 96 Room Air O2 Flow Rate 07/05/22 15:16 07/05/22 11:45 0 10/31/22 07:18 PG Care Time/CCT Total # of Minutes Spent Total Time Spent with Patient: Total time spent is greater than 50% in coordination of care (as documented) at patient's floor/unit and/or counseling patient: Coding Level of Care Code 17942 Subseq Hosp Care Lvl 2 Diagnoses Fracture, intertrochanteric, left femur S72.142A Anxiety F41.9 Time Spent (min) 35
[2022-07-05] MEDS: DOCUSATE SODIUM/SENNA 50/8.6MG TAB PO SCH (20:16)
[2022-07-05] MEDS: ESCITALOPRAM OXALATE 10 MG TAB PO SCH (20:16)
[2022-07-06] MEDS ORDERED: ALENDRONATE SODIUM 70 MG TAB PO SCH (06:30)
[2022-07-06] MEDS: ASPIRIN 81 MG ECTAB PO SCH (08:30)
--- NOTE | 2022-07-06 10:31 | Orthopedic Progress Note ---
Date of Service July 06, 2022 Assessment & Plan (1) Fracture, intertrochanteric, left femur: Plan: POD2 s/p left hip trochanteric nailing with Dr Hua on 07/04/22 WBAT with walker PT/OT Diet - regular Frequently ice and elevate DVT prophylaxis: ASA 81mg BID x 6 weeks with food, TEDS x 3 weeks, foot pumps while in hospital Pain control: Tylenol 1000mg q 8hrs, oxycodone 5-10mg q4-6 hrs for moderate pain Dressing: clean, dry and intact. left in place Plan is to discharge home today with in home PT starting tomorrow Orthopedically stable for dc home today pending PT clearance Follow up with Dr Hua in 10-14 days @ [facility] Orthopedics Admission and Anticipated Discharge Date Admission Date: July 03, 2022 Subjective This 67 yo F is day 2 s/p trochanteric nailing for a left femur fracture that she sustained on Tuesday morning. Patient is doing very well and is anxious to be discharged home later today. She states that she is set up with home therapy starting tomorrow. She states that her pain is adequately controlled with the PO pain medication. She denies CP, SOB, fever, chills, sweats, N/T in the Left LE. Review of Systems Review of Systems: All systems reviewed & are unremarkable except as noted in Subjective Physical Exam Physical Exam: Left Hip: dressings are clean, dry and intact. They were left in place. She is able to perform an active SLRT and actively dorsi/plantar flex her foot without issue. Quad strength is 3+/5. She has no pain with log rolling, passive hip flexion to 90 degrees. No pain with passive internal rotation. Slight twinge with passive external rotation. NV intact in Left LE. Results & Data ([facility]) Vital Signs (Past 12 Hours) Vital Signs Temp Pulse Pulse Resp BP Pulse Ox O2 Del Method 07/06/22 07:43 36.9 C 72 18 106/71 97 Room Air 07/06/22 07:27 37 C 78 14 106/60 97 Room Air Diagnostic Findings Laboratory Results WBC 7.51 K/ul (4.8-10.8) 07/05/22 07:03 RBC 3.04 M/uL (3.93-5.22) L 07/05/22 07:03 Hgb 9.6 g/dl (12.0-16.0) L 07/05/22 07:03 Hct 28.5 % (34.1-44.9) L 07/05/22 07:03 MCV 93.8 fL (80.0-100.0) 07/05/22 07:03 MCH 31.6 pg (25.0-34.0) 07/05/22 07:03 MCHC 33.7 g/dL (32.0-36.0) 07/05/22 07:03 RDW Std Deviation 44.3 fL (36.4-46.3) 07/05/22 07:03 RDW Coeff of [place] 12.8 % (11.5-14.5) 07/05/22 07:03 Plt Count 151 K/uL (130-400) 07/05/22 07:03 MPV 11.3 fL (9.4-12.3) 07/05/22 07:03 Immature Gran % (Auto) 0.4 % 07/05/22 07:03 Neut % (Auto) 80.2 % 07/05/22 07:03 Lymph % (Auto) 12.3 % 07/05/22 07:03 [place] % (Auto) 6.9 % 07/05/22 07:03 Eos % (Auto) 0.1 % 07/05/22 07:03 Baso % (Auto) 0.1 % 07/05/22 07:03 Neut # (Auto) 6.02 K/uL (1.4-6.5) 07/05/22 07:03 Lymph # (Auto) 0.92 K/uL (1.2-3.4) L 07/05/22 07:03 [place] # (Auto) 0.52 K/uL (0.24-0.82) 07/05/22 07:03 Eos # (Auto) 0.01 K/uL (0-0.50) 07/05/22 07:03 Baso # (Auto) 0.01 K/uL (0-0.2) 07/05/22 07:03 Immature Gran # (Auto) 0.03 K/uL (0.00-0.02) H 07/05/22 07:03 PT 12.2 Seconds (9.0-12.0) H 07/03/22 17:34 INR 1.2 (0.9-1.1) H 07/03/22 17:34 APTT 23.9 Seconds (21.0-31.0) 07/03/22 17:34 PTT Ratio 0.9 07/03/22 17:34 Sodium 143 mmol/L (136-145) 07/05/22 07:03 Potassium 3.5 mmol/L (3.5-5.1) 07/05/22 07:03 Chloride 108 mmol/L (98-107) H 07/05/22 07:03 Carbon Dioxide 31 mmol/L (21-32) 07/05/22 07:03 Anion Gap 4 (3-11) 07/05/22 07:03 BUN 13 mg/dl (6-23) 07/05/22 07:03 Creatinine 0.64 mg/dl (0.6-1.2) 07/05/22 07:03 Est Cr Clr Drug Dosing 76.8 ml/min 07/05/22 07:03 Est GFR ( Amer) 107.0 ml/min 07/05/22 07:03 Est GFR (Non-Af Amer) 92.3 ml/min 07/05/22 07:03 BUN/Creatinine Ratio 20.3 (10-20) H 07/05/22 07:03 Glucose 101 mg/dl (70-99(Fasting)) H 07/05/22 07:03 Calcium 7.9 mg/dl (8.5-10.1) L 07/05/22 07:03 Total Bilirubin 2.4 mg/dl (0.2-1.0) H 07/04/22 05:46 AST 50 U/L (13-39) H 07/04/22 05:46 ALT 50 U/L (7-52) 07/04/22 05:46 Alkaline Phosphatase 45 U/L (34-104) 07/04/22 05:46 Total Protein 5.5 gm/dl (6.0-8.3) L 07/04/22 05:46 Albumin 3.3 gm/dl (3.4-5.0) L 07/04/22 05:46 Globulin 2.2 gm/dl (2.5-4.0) L 07/04/22 05:46 Albumin/Globulin Ratio 1.5 (0.9-2) 07/04/22 05:46 25-OH Vitamin D Total 22.0 ng/ml (30-100) L 07/05/22 07:03 Hepatitis C Ab (EIA) REACTIVE (NON-REACTIVE) A 07/04/22 05:46 Hep C Ab Signal/Cutoff 1.08 (<1.00) H 07/04/22 05:46 SARS-CoV-2, RNA, NAAT NEGATIVE (NEGATIVE) 07/03/22 21:30 Blood Type A Positive 07/03/22 17:34 Antibody Screen NEGATIVE 07/03/22 17:34 Impressions Hip X-Ray 07/04/22 09:43 XR hip LT min 2V CLINICAL HISTORY: Post-Operative implant position COMPARISON: Intraoperative fluoroscopic images performed earlier today. FINDINGS: Postoperative findings consistent with internal fixation of the intertrochanteric fracture of the left femur with trochanteric nail are noted. Lesser trochanter is displaced. Otherwise, fracture is in near anatomic alignment. Hardware is intact. There are no unexpected radiopaque foreign bodies. IMPRESSION: Postoperative findings following internal fixation of the intertrochanteric fracture of the left femur with trochanteric nail. ACT 112: Negative or not required by law. Electronically signed by: Jovanni Cooper M.D. 07/04/2022 11:25 AM
--- NOTE | 2022-07-06 15:02 | Discharge Summary ---
Date of Service July 06, 2022 Admission HPI Per Admitting Provider This 67 yo F was transferred from [facility] to our facility for a hip fracture that she sustained this AM after tripping over her purse and landing on her left side. Patient was unable bear weight on the left LE after the fall. She elected to come here for surgery because she is established with our providers. She denies CP, SOB, nausea, vomiting, fever, chills, sweats, lethargy or N/T in her left lower extremity. She does have history of osteoporosis and anxiety. Principal Diagnosis hip fracture Discharge Exam The patient is awake, alert and oriented 3, well developed and well nourished, normocephalic and atraumatic, lying in bed and in no acute distress. HEENT--PERRL, EOMI, mucous membranes and oropharynx mildly dry Neck--supple. No JVD. No bruits. Thyroid normal, trachea midline, no adenopathy. Heart--normal S1 and S2. No murmurs, rubs or gallops. Lungs--clear bilaterally, no respiratory distress, no accessory muscle use. Abdomen--normal bowel sounds and soft. Mild epigastric and left sided abdominal pain Extremities--no cyanosis or clubbing. No edema. Dermatologic--normal skin turgor, normal color, no abnormal lymph nodes, no rash. Neurologic--cranial nerves II through XII grossly intact. Rheumatologic--normal range of motion. Psychiatric--normal affect. Discharge Data Allergies Allergy/AdvReac Type Severity Reaction Status Date / Time Iodinated Contrast Media Allergy Mild HIVES Verified 01/23/20 18:00 Consultations 07/03/22 12:07 Consult Anesthesiology Routine Consult Orthopedic Surgery Routine Procedures Performed Operation Date: 07/04/22 07:30 Actual Procedures p Left Hip Trochanteric Nailing(Left) - Jose Hua MD Ordered Studies 07/04/22 [place] hip LT 2-3V Routine Hospital Course (1) Fracture, intertrochanteric, left femur: Acute left intertrochanteric femur fracture -Day 2 post intramedllary nailing Participating in PT -Pain is under good control d/c home with PT Osteoporosis Fosamax weekly, recommend daily calcium/vitamin D supplementation No other chronic medical problems, no chronic medications, no cardiac history, no history of diabetes or insulin use (2) Anxiety: Continue Lexapro 10 mg daily Plan d/c home DVT prophylaxis: Pharmacal prophylaxis held pending surgical intervention within ~12 hours Diet: regular Disposition: Medical/surgical CODE STATUS: Full code Total Time Total Time Spent Total Time Spent (In Minutes): 35 Discharge Plan Discharge Items Patient Disposition: Home - Home Health Services Reason For Visit: L INTERTROCHANTERIC FXR,[facility] DIRECT TRANSF Discharge Diagnosis: Left femur intertrochanteric fracture Activity: As commented below Lifting: None Bathing: Keep incision dry Bathing Comment: May shower tomorrow Sexual Activity: Wait until after follow-up appointment Exercise/Sports: Wait until after follow-up appointment Driving/Machine Use: No driving until cleared by orthopedic coder Weightbearing: Left weightbearing Weightbearing Comment: as tolerated with walker assistance Non-emergency contact: Surgeon Call non-emergency contact if: you have any medication questions, your pain is not controlled, your temperature is above 101.5, your wound has increased drainage and your wound pain has increased Follow-up/Referrals: Javier Dao M.D. [Primary Care Provider] - 07/14/22 11:00 am (Please wear mask into the building.) Jose Hua MD [Surgeon] - 07/12/22 9:30 am (In 10-14 days from surgery) Diet: Regular Addtl Attending Provider Instructions: Post-operative Instructions Dear Patient and Family/Friends, Before you are discharged from the hospital, it is important to know what to expect when you get home after surgery. To that end, we have created this sheet of discharge instructions which covers many commonly asked questions. Make sure you go through this sheet in its entirety with your nurse before you are discharged. Please note that we will go over the specifics of your surgery and recovery when you return for your first post-operative visit. Sincerely, Dr. Hua Medication 1. Oxycodone 5mg: take 1-2 tabs every 4-6 hours as needed for pain. A prescription was sent to your pharmacy. 2. Aspirin 81 mg: take 1 tab twice daily for blood clot prevention. Please purchase. 3. Ibuprofen 200 mg: take 3 tabs after each meal for relief of pain/inflammation. Please purchase. 4. Extra Strength Tylenol 500 mg: take 2 tabs every 6-8 hours as needed for additional pain relief. Please purchase. Pain Expect to be in a fair amount of pain after surgery. Remember, our goal is not to eliminate your pain, but to make it tolerable. It is a good idea to stay ahead of your pain by taking the medications you were prescribed once you get home. Typically, the pain starts improving 3-7 days after surgery. You should start weaning off the narcotic pain medication (oxycodone, hydrocodone, hydromorphone, morphine) as soon as your pain improves. Please call our office if your pain is not adequately controlled. Ice Ice your operative site at least 5 times a day for 15-30 minutes at a time. Make sure you have a thin cloth between the ice or cooling unit and your skin to prevent page bite. This is especially important if you received a nerve block. Continue icing your operative site for the first 5-7 days after surgery, then as needed. Diet/Nausea/Vomiting Start by drinking clear liquids and eating crackers. If you can tolerate this, then you may resume your normal diet. If you feel nauseated or vomit, take Zofran/ondansetron (if prescribed). Please call our office if you have intractable nausea or vomiting, or, if after hours, you may go to the Emergency Room for help. Constipation Constipation is a common side effect of narcotic pain medication. If you have not had a bowel movement within 2 days after surgery, we recommend purchasing an over the counter laxative such as Milk of Magnesia, Dulcolax, or Miralax from a local pharmacy, and taking it as instructed. Call our clinic if any questions. Weight bearing and Range of Motion. You can weight bear as tolerated on your operative extremity. Please use your walker to assist in ambulation. Physical therapy You will be given a prescription for physical therapy or occupational therapy at your first post-operative appointment. Typically, patients start therapy within 1 week of surgery Wound care and showering We will inspect your wound at your first post-operative visit, and may do a dressing change at that time. Most patients will be in a water-proof dressing that is removed 14 days after surgery. It is normal to see some dried blood on the dressing. Do not remove your dressing, paper strips or sutures yourself unless you are given permission. Showering is allowed the day after surgery. Do not scrub or remove any dressings. The wound should not be submerged underwater (i.e. in a bathtub or pool) until 4 weeks after surgery PAUL stockings If you were given white stockings, these are to be worn at all times except to shower (on both legs) for the first 2 weeks after surgery. Blood Clot Prevention Please take Aspirin 81mg twice a day with food for 6 weeks to help prevent blood clots. In addition, its important that you do not remain sedentary. Short walks in the house with your walker and ankle pumps/rehab exercises while you are sitting/laying down are both good ways to get your blood flowing and to help prevent DVTs. Please also wear PAUL stockings as instructed for addition blood clot prevention. Driving You may not drive while taking narcotic pain medication or while in a cast, splint, sling or brace. You, the patient, need to make the final determination about when you are safe to drive, however, the earliest you may consider driving after surgery is below: Hand/Wrist/Elbow Surgery: 3 days Shoulder Surgery: 2 weeks Hip,/Knee/Ankle Surgery: 4 weeks Fracture repair: 6 weeks Return to Work Your return to work depends on what surgery was done and what type of work you do. Please bring any paperwork your employer needs completed to your first post-operative visit. Also, bring a description of your job duties, as this helps us to understand what risks you may face at work. Travel Avoid long distance travel (greater than 1 hour) in airplanes and cars for the first 6 weeks after surgery. If you must travel, you need to have a Doppler ultrasound done before you travel to rule out a blood clot in your legs. Follow-up You will follow up with Dr Hua in 10-14 days from your surgery. At this appointment, your dressing will be taken down and sutures removed. When to call the office It is normal to have swelling and bruising in the limb that was operated on. Th is will improve with time. It is also normal to have fevers for the first 2 days after surgery. Reasons you should call your doctor include: Uncontrolled pain; Nausea, vomiting, or constipation that does not improve with medication; Fevers over 101.5, chills, sweats; Drainage or bleeding from the wound; Foul odor; Spreading areas of redness; Any other concerns Pending Studies at Discharge: No Stand-Alone Forms: [facility], Smoking Cessation Medications and DC Order Prescriptions: New oxycodone 5 mg tablet 5 mg PO Q4H PRN (Reason: pain) Qty: 18 0RF Rx Instructions: 1 tablet for pain 1-5 2 tablets for pain 6-10 Continued alendronate [Fosamax] 70 mg Tablet 70 mg PO WK Rx Instructions: TAKE THIS MED EVERY TUESDAY Discharge Orders: Discharge Order (Routine); Ordered 07/06/22 Ordered By: Fly Trivedi Admission Data Admit Date/Time: 07/03/22 12:11 Attending Provider: Jay Queen Admit Provider: Jose Rafael Hand Primary Care Provider: Javier Dao Other Providers: Fly Trivedi ; Domenica River ; Sabrina Patel ; Yuly Cohen ; Cate Castillo ; Karlie Celis ; Juan Antonio Calvin ; Lele Ayon ; Darien Grimaldo ; Javier Campos ; Elodia Campos ; Austin Pablo ; Arabella Hansen ; Viktor Sheikh ; Brady Palma ; Rashel Matamoros ; Dayne Caberra ; Tia Brown ; Jarad Olvera ; Alba Hobbs ; Cher Olvera ; Tolu Hathaway ; Azra Perez ; Luis Antonio Toledo ; Jasmine Benito ; Ellen Rosado ; Wen Abbasi ; Cade Vivar ; Aminata Moreno ; Diamante Galicia ; Maggie Guillory ; Landy Shine ; Garry Shine V ; Js Waller ; Sabrina Glaser ; Kwame Leroy ; Emmie Patterson ; Garry Barrios ; Seth Brown ; Rai Montero ; Simin Montalvo ; Sunshine Manning ; Garry Reveles ; Lico Marques ; Juan Cabrera ; Corina Pena ; Nitin Cosme ; Ольга Duarte ; Bandar Reyes ; Nitin Ward ; Juan Antonio Gale Jr ; Paige Palacio ; Preeti Bowles ; Nydia Alarcon ; Cade Figueroa ; Cate Joyner ; Javier Luu ; Chip Bhatia I. ; Jacquie Currie ; Preeti Arriola ; Jose Hua ; [facility] Other Interventions: Discharge Summary Assessment (RN) Last Done: 07/06/22 11:04 Coding Level of Care Code D/C DAY MANAGEMENT >30 MINS Diagnoses Fracture, intertrochanteric, left femur S72.142A Anxiety F41.9 Time Spent (min) 35
--- NOTE | 2022-07-15 06:45 | Coding Query ---
To promote full compliance with coding requirements relating to patient care, physician participation is requested in all cases of physician practice manager uncertainty. Please assist us with the question(s) below: Coding Question(s): It was noted throughout the record that the patient has/is suspected to have osteoporosis. According to coding guidelines "a code for osteoporotic fracture, and not a traumatic fracture, should be used for any patient with known osteoporosis who suffers a fracture, even if the patient had a minor fall or trauma, if that fall or trauma would not usually break a normal, healthy bone." Please indicate below the type of fracture: Physician's Response(s): ( x ) Osteoporotic Acute Left Intertrochanteric Femur fracture ( ) Traumatic Acute Left Intertrochanteric Femur fracture ( ) Other, please specify ( ) Unable to be determined MTDD
== END 2022-07-06 13:14 | disposition home health service (06) | DRG 482 ==
LOC: SUATTDRO 12:11 → 3E 16:56